=== PATIENT | male | born 1945 ===

== ENCOUNTER 2017-05-17 10:41 | Emergency (ER) | payer MEDICARE ==
[2017-05-17 11:05] VITALS: BP 158/95
--- NOTE | 2017-05-17 11:19 | UC ---
Shortness of Breath HPI - HPI Summary HPI Summary: PT WITH 12 DAYS OF COUGH, CONGESTION AND SOB. WORST WHEN LAYING SUPINE. WENT TO PCP 05/13 (4 DAYS AGO) AND [place] FOR A RESPIRATORY INFECTION WITH AUGMENTIN AND TESSALON. PT REPORTS HE FEELS WORSE EVERY DAY. HAD CHILLS LAST NIGHT. HAS SOME MILD INTERMITTENT NAUSEA. DENIES CP. - History of Current Complaint Stated Complaint: TROUBLE BREATHING Time Seen by Provider: 05/17/17 10:50 Hx Obtained From: Patient Onset/Duration: Gradual Onset, Lasting Days, Still Present Current Severity: Moderate Dyspnea At: Orthopena Aggrevating Factors: Recumbent Position Alleviating Factors: Upright Position Associated Signs & Symptoms: Negative: Chest Pain w/Cough, Chest Pain Unrelated to Cough - Allergy/Home Medications Allergies/Adverse Reactions: Allergies Allergy/AdvReac Type Severity Reaction Status Date / Time No Known Allergies Allergy Verified 05/17/17 10:50 Home Medications: Home Medications Amoxicillin/Clavulanate TAB* [Augmentin TAB 875*] 875 mg PO BID 05/17/17 [ History Confirmed 05/17/17] Benzonatate [Benzonatate 200 MG] 200 mg PO TID 05/17/17 [History Confirmed 05/17] Lisinopril [Lisinopril 30 MG-] 30 mg PO DAILY 05/17/17 [History Confirmed ] Omeprazole CAP* [Prilosec CAP* 20 MG] 20 mg PO DAILY 05/17/17 [History Confirmed 05/17/17] PMH/Surg Hx/FS Hx/Imm Hx Cardiovascular History: Hypertension - Surgical History Surgical History: Yes Surgery Procedure, Year, and Place: INTESTINAL OBSTRUCTION. HERNIA, KNEE SURGERY - Family History Known Family History: Positive: Hypertension - Social History Alcohol Use: None Substance Use Type: None Smoking Status (MU): Never Smoked Tobacco Review of Systems Constitutional: Chills, Fatigue ENT: Nasal Discharge Respiratory: Shortness Of Breath, Cough Cardiovascular: Negative Gastrointestinal: Nausea All Other Systems Reviewed And Are Negative: Yes Physical Exam Triage Information Reviewed: Yes Appearance: No Pain Distress, Well-Nourished, Ill-Appearing - MILD Vital Signs: Initial Vital Signs Temp 98.7 F 05/17/17 10:53 Pulse 79 05/17/17 10:53 Resp 20 05/17/17 10:53 BP 158/95 05/17/17 10:53 Pulse Ox 95 05/17/17 10:53 Vital Signs Reviewed: Yes Eyes: Positive: Conjunctiva Clear ENT: Positive: Hearing grossly normal, Pharynx normal, TMs normal Neck: Positive: Supple, Nontender, No Lymphadenopathy Respiratory Exam: Normal Cardiovascular Exam: Normal Abdomen Description: Positive: Soft Musculoskeletal: Positive: Edema @ - 1+ PITTINE EDEMA BIALTERAL ANKLES Neurological: Positive: Alert Psychological: Positive: Normal Response To Family, Age Appropriate Behavior Skin: Negative: rashes Diagnostics - Radiology CXR Xray Interpretation: No Acute Changes Radiology Interpretation Completed By: Radiologist - EKG Cardiac Rate: NL - 80BPM Cardiac Rhythm: Sinus: Normal Ectopy: None ST Segment: Normal Re-Evaluation - Re-Evaluation First Eval Re-Evaluation Time: 12:00 - PT REPORTS HE FEELS BETTER AFTER ALBUTEROL NEB. O2SAT 91%. PT ADVISED TO GO TO ER. PT DECLINES. Change: Improved Shortness of Breath Dx - Course Course Of Treatment: O2SAT DROPPED TO 91-92% AFTER AMBULATION. PT OFFERED TRANSFER TO ED BUT DECLINED WITH THE UNDERSTANDING THAT HIS CONDITION MAY WORSEN LEADING TO RESPIRATORY DISTRESS/FAILURE, CARDIAC ARREST, / DISABILITY. - Differential Dx/Diagnosis Provider Diagnoses: SHORTNESS OF BREATH Discharge - Discharge Plan Condition: Stable Disposition: HOME Prescriptions: Albuterol HFA INHALER* [Ventolin HFA Inhaler*] 2 puff INH Q4H PRN #1 mdi PRN Reason: Shortness Of Breath Patient Education Materials: Shortness of Breath (ED) Referrals: Phan Silverman MD [Medical Doctor] - If Needed Additional Instructions: YOUR OXYGEN LEVELS DROPPED TO 91% WITH AMBULATION. CHEST XRAY WAS UNREVEALING. EKG DID NOT SHOW ANYTHING ACUTE. YOU HAVE DECLINED TRANSFER TO THE ED TODAY WITH THE UNDERSTANDING THAT YOUR CONDITION MAY WORSEN LEADING TO RESPIRATORY DISTRESS/FAILURE, CARDIAC ARREST, /DISABILITY. CONTINUE YOUR ANTIBIOTIC PRESCRIBED. GO TO ER WITHOUT FAIL IF YOU DEVELOP WORSENING SHORTNESS OF BREATH, CHEST PAIN, NAUSEA, SWEATS, DIZZINESS OR ANY OTHER CONCERNING SYMPTOMS.
[2017-05-17] MEDS ORDERED: Albuterol 2.5 MG/3 ML NEB.SOL* (0.083%) INH ONE (11:24)
--- NOTE | 2017-05-17 11:40 | RAD ---
HISTORY: Shortness of breath COMPARISONS: None VIEWS: 4: Frontal dual-energy and lateral views of the chest. FINDINGS: CARDIOMEDIASTINAL SILHOUETTE: The aorta is tortuous. The cardiomediastinal silhouette is otherwise unremarkable. MARISA: The marisa are normal. PLEURA: The costophrenic angles are sharp. No pleural abnormalities are noted. LUNG PARENCHYMA: The lungs are clear. ABDOMEN: The upper abdomen is clear. There is no subphrenic gas. BONES AND SOFT TISSUES: Degenerative changes are noted of the spine OTHER: None. IMPRESSION: NO ACTIVE CARDIOPULMONARY DISEASE.
== END 2017-05-17 12:15 | disposition home or self-care (01) ==
LOC: UCCORT 10:41
DX: R06.02 Shortness of breath (principal); I10 Essential (primary) hypertension
CPT/HCPCS: 71046; 93005; 99202; G0463